=== PATIENT | female | born 1935 | race Caucasian/White ===

== ENCOUNTER 2018-10-08 14:21 | Outpatient (CLI) | payer MEDICARE ==
[2018-10-08] MEDS ORDERED: MV-M1TAB54 PO (14:56)
[2018-10-08] MEDS ORDERED: CALC-534 PO (14:56)
[2018-10-08] MEDS ORDERED: CHOL200024 PO (14:56)
[2018-10-08] MEDS ORDERED: TURMERIC PO (14:56)
[2018-10-08] MEDS ORDERED: MAGNESIUM PO (14:56)
[2018-10-08] MEDS ORDERED: VITAMIN E PO (14:56)
[2018-10-08] MEDS ORDERED: LECI1200 PO (14:56)
[2018-10-08] MEDS ORDERED: GRAPESEED PO (14:56)
[2018-10-08] MEDS ORDERED: ECHI400C12 PO (14:56)
[2018-10-08] MEDS ORDERED: SUPER BEETS PO (14:56)
[2018-10-08 15:16] LABS: BASOPHILS # (AUTO) 0.01 x10^3/uL (0-0.1); BASOPHILS % (AUTO) 0 % (0-1); EOSINOPHILS # (AUTO) 0.14 x10^3/uL (0-0.4); EOSINOPHILS % (AUTO) 2 % (1-7); LYMPHOCYTES # (AUTO) 1.92 x10^3/uL (1-3.4); LYMPHOCYTES % (AUTO) 32 % (22-44); MD NO; MEAN CORPUSCULAR HEMOGLOBIN 31.8 pg (27.0-34.8); MEAN CORPUSCULAR HGB CONC 33.1 g/dL (32.4-35.8); MEAN CORPUSCULAR VOLUME 96.2 fL (80-100); MEAN PLATELET VOLUME 8.5 fL (7.4-10.4); MONOCYTES # (AUTO) 0.46 x10^3/uL (0.2-0.8); MONOCYTES % (AUTO) 8 % (2-9); NEUTROPHILS # (AUTO) 3.42 x10^3/uL (1.8-6.8); NEUTROPHILS % (AUTO) 57 % (42-75); PLATELET COUNT 199 x10^3/uL (130-400); RED BLOOD COUNT 4.45 x10^6/uL (3.82-5.3); RED CELL DISTRIBUTION WIDTH 13.9 % (9.6-15.2)
[2018-10-08 15:24] LABS: ANION GAP 7 mmol/L (5-15); CALCIUM 9.5 mg/dL (8.5-10.1); CHLORIDE 109 mmol/L (98-107); CREATININE 0.98 mg/dL (0.55-1.02)
== END 2018-10-08 23:59 | disposition home or self-care (01) ==
LOC: STAR 14:21
PROVIDERS: ATTEND Obstetrics & Gynecology Female Pelvic Medicine and Reconstructive Surgery
DX: Z01.818 Encounter for other preprocedural examination (principal); N81.4 Uterovaginal prolapse, unspecified; N81.6 Rectocele; R35.0 Frequency of micturition
CPT/HCPCS: 36415; 71046; 80048; 85025; 93005

== ENCOUNTER 2018-11-02 08:00 | Outpatient (CLI) | payer MEDICARE ==
[~2018-11-02] VITALS: Ht 157.5 cm; Wt 63.6 kg
== END 2018-11-02 23:59 | disposition home or self-care (01) ==
LOC: STAR 08:00 → EDSTATUS 14:00 → STAR 23:59
PROVIDERS: ATTEND Obstetrics & Gynecology Female Pelvic Medicine and Reconstructive Surgery
DX: N39.3 Stress incontinence (female) (male) (principal); N81.3 Complete uterovaginal prolapse; Z98.890 Other specified postprocedural states; N32.81 Overactive bladder
CPT/HCPCS: 57120; 57288; C1771; J0171; J0330; J0690; J1100; J2405; J2704; J2710; J3010; J3490; J7120